=== PATIENT | male | born 1965 | race Caucasian/White ===

== ENCOUNTER → 2019-01-25 06:32 | Outpatient (CLI) | payer BC, SELFPAY ==
--- NOTE | 2019-01-25 06:45 | CA_ITS ---
PROCEDURE: 2-D M-mode and color Doppler study INDICATIONS FOR THE TEST: Chest pain X COPD Heart Murmur Tobacco SmokingEX Palpitations Fatigue Syncope Edema HypertensionXDiabetes Mellitus Rheumatic Fever SOBXDOE Obesity HyperlipidemiaX Family History HD Additional History PRE-OP,CAD,STENT,CVA,OLD [place] PATIENT INFORMATION HEIGHT: 69 WEIGHT:165 GENDER: Male B/P:127/99 2-D/M-MODE INTERPRETATION: 2-D MEASUREMENTS OBSERVED VALUES IN CMS Right Ventricular Dimension (RVDd) 2.6 Interventricular Septum (Thickness)(IVsd) .7 Left Ventricular Internal Dimensions(LVIDd) 5.7 Left Ventricular Posterior Wall (Thickness)(LVPWd) .7 Aortic Root 3.8 Aortic Cusp Separation 1.9 Left Atrial Dimensions (LAD) 2.9 2D 1. Left atrium is mildly enlarged, left ventricle is normal size, mild concentric left ventricular hypertrophy, visually estimated ejection fraction 40-45%, there is moderate hypokinesis involving distal septum anterior and anterior apical wall. 2. The right atrium and right ventricle are normal size and contractility. 3. The aortic valve is minimally thickened and calcified. 4. The mitral and tricuspid valvular grossly normal. 5. The pulmonic valve is poorly visualized. 6. No significant pericardial effusion noted. DOPPLER INTERROGATION: Doppler interrogation of the aortic, mitral and tricuspid valvular presence of mild mitral and tricuspid regurgitation, tricuspid regurgitation jet velocity is inadequate for calculation of the right ventricular systolic pressure, grade 1 diastolic dysfunction seen without tissue Doppler evidence of raised left atrial pressure. CONCLUSION: 1. Mildly enlarged left atrium, normal left ventricular size, mild concentric left ventricular hypertrophy, visually estimated ejection fraction 40-45% with segmental wall motion abnormality described above, grade 1 diastolic dysfunction seen without tissue Doppler evidence of raised left atrial pressure. 2. Mild mitral and tricuspid regurgitation 3. No significant pericardial effusion noted.
--- NOTE | 2019-01-25 06:45 | CI_ITS ---
Cerebrovascular Exam Indications: CVA 436. 780.4 Dizziness and giddiness. IMPRESSIONS 1. The bilateral internal carotid arteries reveal no evidence of plaque or stenosis. 2. The bilateral common and external carotid arteries reveal no significant stenosis. 3. The bilateral vertebral arteries are patent with normal antegrade flow. History: Risk factors: Current tobacco use. Hypertension. Carotid duplex study. Complete study and Doppler flow study including spectral analysis, color and squires scale imaging. Height: Height: 175.3cm. Height: 69in. Weight: Weight: 74.8kg. Weight: 164.7lb. Body mass index: BMI: 24.4kg/m^2. Body surface area: BSA: 1.92m^2. Location: Vascular laboratory. Patient status: Outpatient. Tables: Arterial flow: + +--------+--------+ Location V sys V ed + +--------+--------+ Right CCA - proximal 95.9cm/s 25.9cm/s + +--------+--------+ Right CCA - distal 107cm/s 36.1cm/s + +--------+--------+ Right ECA 87.8cm/s 22.2cm/s + +--------+--------+ Right ICA - proximal 73.1cm/s 29.9cm/s + +--------+--------+ Right ICA - mid 62.1cm/s 29.9cm/s + +--------+--------+ Right ICA - distal 54.5cm/s 23.8cm/s + +--------+--------+ Right vertebral 39.3cm/s 14.8cm/s + +--------+--------+ Left CCA - proximal 72.4cm/s 25.3cm/s + +--------+--------+ Left CCA - distal 62.1cm/s 24.4cm/s + +--------+--------+ Left ECA 78.2cm/s 25.7cm/s + +--------+--------+ Left ICA - proximal 46.1cm/s 20.1cm/s + +--------+--------+ Left ICA - mid 74.2cm/s 36.1cm/s + +--------+--------+ Left ICA - distal 61.1cm/s 33cm/s + +--------+--------+ Left vertebral 52.6cm/s 14.8cm/s + +--------+--------+ Velocity ratios: + + + + + + Right, V sys Right, V ed Left, V sys Left, V ed + + + + + + Max ICA/dist CCA 0.68 0.83 1.19 1.48 + + + + + + (Report amended ) Electronically signed by: Yoseph Cai [id number]
--- NOTE | 2019-01-25 11:08 | NM_ITS ---
History:fatigue..hx cva Procedure: Patient exercised on Thom protocol 10 minutes and 45, resting heart rate 90 bpm, resting blood pressure 150/100, with exercise maximum heart rate achieve was 144 bpm which is 86 % of the maximum predicted heart rate and blood pressure was 180/100. Test was stopped due to shortness of breath, patient denied any complaint of chest pain. Patient has good exercise capacity achieved 12.8 mets of workload on treadmill, the blood pressure response to exercise was hypertensive. Electrocardiogram: Resting electrocardiogram showed sinus rhythm, anteroseptal infarct age indeterminate, with exercise there is less than 1.5mm ST segment depression noted from the baseline EKG. The EKG portion of the exercise Myoview is nondiagnostic due to baseline abnormal EKG.. Cardias Stress and Resting SPECT images: Cardias Stress and Resting SPECT images were obtained using technetium 99m Myoview 31.3 mCi stress and 9.99 mCi at rest. Gated SPECT further analysis of segmental wall motion and calculation of ejection fraction also done. Cardiac stress and resting SPECT show of fixed defect involving the apex and anteroseptal wall consistent with myocardial scarring with no reversible ischemia., the computer derived ejection fraction is 46% with moderate apical and anteroseptal wall hypokinesis. Conclusion: 1. The EKG portion of the exercise Myoview is nondiagnostic due to baseline abnormal EKG, patient has good exercise capacity achieved 12.8mets of workload on treadmill, the blood pressure response to exercise was hypertensive, there.. 2. No scintigraphic evidence of reversible ischemia seen, computer derived ejection fraction is 46 % with segmental wall motion abnormality described above, evidence of anteroseptal and apical myocardial infarction seen without significant leora-infarct ischemia.. 3. Abnormal exercise Myoview study.
--- NOTE | 2019-01-25 11:10 | HMH.ITSHM ---
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 [] carvedilol lisinopril
== END ==
PROVIDERS: Visit Provider Internal Medicine
DX: R07.9 Chest pain, unspecified (principal); R06.02 Shortness of breath; E78.5 Hyperlipidemia, unspecified; I11.9 Hypertensive heart disease without heart failure; I25.10 Atherosclerotic heart disease of native coronary artery without angina pectoris; Z86.73 Personal history of transient ischemic attack (TIA), and cerebral infarction without residual deficits
CPT/HCPCS: 78452; 93017; 93306; 93880; A9502